=== PATIENT | male | born 1975 | race Two or more races ===

== ENCOUNTER → 2017-07-23 | Outpatient (CLI) | payer OTHER | END | disposition home or self-care (01) | LOC: RAD 08:38 | PROVIDERS: ATTEND Family Medicine Adult Medicine | DX: N28.1 Cyst of kidney, acquired (principal); K76.0 Fatty (change of) liver, not elsewhere classified | CPT/HCPCS: 76700 ==

== ENCOUNTER → 2017-08-17 | Outpatient (CLI) | payer OTHER ==
[~2017-08-17] MED LIST: OMNIPAQUE 350 MG/ML, 100ML BOTTLE ONE
== END | disposition home or self-care (01) ==
LOC: RAD 09:10
PROVIDERS: ATTEND Family Medicine Adult Medicine
DX: N28.1 Cyst of kidney, acquired (principal); K40.90 Unilateral inguinal hernia, without obstruction or gangrene, not specified as recurrent
CPT/HCPCS: 74178; Q9967